=== PATIENT | male | born 2000 | race African-American/Black ===

== ENCOUNTER 2021-01-05 20:16 | Emergency (ER) | payer OTHER, BC ==
[~2021-01-05] VITALS: Ht 182.9 cm; Wt 74.8 kg
[2021-01-05 20:20] VITALS: BP_SYST 138
[2021-01-05] MEDS ORDERED: IBUP-1969 PO (21:26)
[2021-01-05 21:45] VITALS: BP_SYST 138
== END 2021-01-05 21:45 | disposition home or self-care (01) ==
LOC: SED 20:16
DX: S20.212A Contusion of left front wall of thorax, initial encounter (principal); Z79.899 Other long term (current) drug therapy; V49.49XA Driver injured in collision with other motor vehicles in traffic accident, initial encounter; Y93.89 Activity, other specified; Y92.89 Other specified places as the place of occurrence of the external cause; Y99.8 Other external cause status
CPT/HCPCS: 71046-TC; 72050-TC; 93005; 99284